=== PATIENT | male | born 1985 | race Caucasian/White ===

== ENCOUNTER 2020-10-15 14:35 | Emergency (ER) | payer SELFPAY ==
[2020-10-15 14:50] VITALS: BP 132/85; PULSE 95; RESP 14; TEMP 36.8; O2SAT 97; BMI 26.0
[2020-10-15 15:02] VITALS: BP 139/74; PULSE 87; RESP 18; O2SAT 97
[2020-10-15] MEDS: SODIUM CHLORIDE 0.9% 1,000 ML 125 ML IV (15:13)
[2020-10-15] MEDS: methylPREDNISolone 125 MG/2 ML VIAL IV (15:13)
[2020-10-15] MEDS: diphenhydrAMINE 50 MG/ML VIAL 25 MG IV (15:14)
--- NOTE | 2020-10-15 15:29 | ED.ALLEREA ---
HPI - Allergic Reaction General Chief complaint: Allergic Reaction Stated complaint: some sort of allergic reaction, hives Time Seen by Provider: 10/15/20 15:01 Source: patient Mode of arrival: Ambulatory Limitations: no limitations History of Present Illness HPI narrative: Patient is a 35-year-old otherwise healthy male who is here for evaluation of a rash and hives. He states that the rash has been present for the past 2 days. He has been taking Benadryl at home which improves the rash but does not resolve it however the rash seems to come back once the medication wears off. He started having some lower lip swelling this morning. No problems breathing. No problems swallowing. He did get stung by a bee 1 week ago however the rash started just a couple days ago. No urinary symptoms. No nausea and vomiting. No new exposures that he knows of. No new medications. No travel. Related Data Previous Rx's Medication Instructions Recorded prednisone 20 mg tablet 20 mg PO DAILY #46 tab 10/15/20 Review of Systems Constitutional Comments: No fevers Eyes Comments: No vision changes ENT Comments: Lower lip swelling, no throat swelling, no tongue swelling Cardiovascular Comments: No chest pain Respiratory Comments: No cough, no shortness of breath Gastrointestinal Comments: No nausea vomiting Genitourinary Comments: No urinary symptoms Musculoskeletal Comments: No swelling Integumentary/Breasts Skin/Breast: Reports as per HPI Neurologic Neurologic: Reports system reviewed and no additional complaints, except as documented Endocrine Endocrine: Reports system reviewed and no additional complaints, except as documented Hematologic/Lymphatic On Anticoagulants: No Allergic/Immunologic Allergic/Immunologic: Reports system reviewed and no additional complaints, except as documented Patient History Medical History Healthy adult Social History Smoking Status: Former smoker Smoking Status: Former smoker alcohol intake frequency: holidays/special occasions only Substance Use Type: marijuana, crack/cocaine and hallucinogens Exam Initial Vital Signs Initial Vital Signs: Vital Signs Temperature 98.3 F 10/15/20 14:50 Pulse Rate 95 H 10/15/20 14:50 Respiratory Rate 14 10/15/20 14:50 Blood Pressure 132/85 10/15/20 14:50 Pulse Oximetry 97 10/15/20 14:50 Const General: cooperative, healthy appearing, comfortable and well developed [facility] Head: normal to inspection and normocephalic Face and sinus: normal facial exam Mouth: oral mucosae normal, moist mucous membranes and other (Lower lip swelling, no tongue swelling) Throat: posterior oropharynx normal Neck Neck: no meningeal signs Chest Chest: No tenderness Resp Effort & Inspection: normal respiratory effort Auscultation: clear to auscultation bilaterally Cardio Rate: regular rate Rhythm: regular rhythm GI Inspection: normal to inspection Palpation: soft Back/Spine/Pelvis Other: Rash over back Skin Other: Patient with what appears to be urticaria around his eyes. He does have macules/papules throughout the rest of his body. Does extend into the areas that would be covered by close so that it is not exposed by the son, no blisters. No pustules. No crusting. Neuro General: patient alert, patient awake and moves all extremities Extrem General: normal to inspection and capillary refill normal Psych Appearance: grossly normal and well kempt Course Orders Ordered: Discontinued Medications Diphenhydramine HCl (Diphenhydramine 50 Mg/Ml Vial) 25 mg IV NOW ONE Stop: 10/15/20 15:02 Last Admin: 10/15/20 15:14 Dose: 25 mg Documented by: SAGE Sodium Chloride (Normal Saline 0.9%) 1,000 mls @ 125 mls/hr IV CONT KATINA Last Admin: 10/15/20 15:13 Dose: 125 mls/hr Documented by: SAGE Methylprednisolone (Methylprednisolone 125 Mg/2 Ml Vial) 125 mg IV NOW ONE Stop: 10/15/20 15:02 Last Admin: 10/15/20 15:13 Dose: 125 mg Documented by: SAGE Vital Signs Vital signs: Vital Signs - 8 hr 10/15/20 14:50 10/15/20 15:02 10/15/20 15:30 Temperature 98.3 F Pulse Rate 95 H 87 79 Respiratory Rate 14 18 20 Blood Pressure 132/85 139/74 132/65 Pulse Oximetry 97 97 96 10/15/20 16:00 10/15/20 16:30 10/15/20 17:00 Temperature Pulse Rate 79 77 73 Respiratory Rate 21 20 20 Blood Pressure 124/66 128/68 124/62 Pulse Oximetry 96 95 95 MDM - Allergic Reaction MDM Narrative Medical decision making narrative: Patient does have some lower lip swelling. No tongue swelling. No problems handling his secretions. No shortness of breath. He does have a systemic rash. This does not appear to be cellulitis. No known new exposures. He was given Benadryl and Solu-Medrol. He is observed in the emergency department for almost 2 hours without any worsening the symptoms and potentially some improvement the symptoms. No signs of anaphylaxis. Unsure the exact etiology of the rash. Will send home with a steroid taper. He was also instructed to start taking famotidine and also Zyrtec. He was given strict return precautions. He was given information to help establish a primary provider. He expressed understanding and agreement. Discharge Plan Departure Patient Disposition: Home Clinical Impression: Allergic reaction Instructions: DI for Rash Activity Restrictions/Additional Instructions: I do recommend that you start taking a medicine called Zyrtec. You can purchase this [id number]. The generic version of this medication is appropriate. You can also start taking a medicine called famotidine/Pepcid. Again this medication can be purchased [id number]. These are 1 time a day medications. Please start taking the steroids as directed. Contact your primary doctor for follow-up. Return to the emergency department for any new or worsening symptoms. I also recommend you contact [phone]. This is the health resource is coordinator and this individual can help you establish a primary doctor in the local area. Prescriptions: New prednisone 20 mg tablet 20 mg PO DAILY Qty: 46 RF: 0
[2020-10-15 15:30] VITALS: BP 132/65; PULSE 79; RESP 20; O2SAT 96
[2020-10-15 16:00] VITALS: BP 124/66; PULSE 79; RESP 21; O2SAT 96
[2020-10-15 16:30] VITALS: BP 128/68; PULSE 77; RESP 20; O2SAT 95
[2020-10-15 17:00] VITALS: BP 124/62; PULSE 73; RESP 20; O2SAT 95
--- NOTE | 2020-10-24 07:22 | PC.NURSE ---
late entry, NS stopped at 1720 on 10/15/20
== END 2020-10-15 17:33 | disposition home or self-care (01) ==
PROVIDERS: Emergency Provider Emergency Medicine
DX: R22.0 Localized swelling, mass and lump, head (principal); T78.40XA Allergy, unspecified, initial encounter
CPT/HCPCS: 36415; 96361; 96374; 96375; 99284; J1200; J2930